=== PATIENT | male | born 1980 | race Caucasian/White ===

== ENCOUNTER 2019-09-19 15:18 | Emergency (ER) | payer OTHER ==
[~2019-09-19] VITALS: Ht 167.6 cm; Wt 88.5 kg
[~2019-09-19 15:18] MED LIST: ACET-8386 PO; ALBU-136 IH; DIAZ5TAB7 PO; PRON INH
--- NOTE | 2019-09-19 16:03 | NUR ---
TO LOBBY A/W BED AMBULATORY
[2019-09-19 16:22] VITALS: BP 137/90
--- NOTE | 2019-09-19 16:52 | NUR ---
Patient ambulated to bed 1. RN evaluating patient at bedside.
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
[2019-09-19] MEDS ORDERED: metroNIDAZOLE 500 MG TAB PO ONE (17:20)
[2019-09-19] MEDS ORDERED: AZITHROMYCIN 250 MG TAB PO ONE (17:20)
[2019-09-19] MEDS ORDERED: GENTAMICIN 80 MG/2 ML VIAL IM ONE (17:20)
[2019-09-19 18:05] VITALS: BP 137/90
--- NOTE | 2019-09-19 18:05 | NUR ---
Patient discharged with v/s stable. Written and verbal after care instructions given and explained. Patient alert, oriented and verbalized understanding of instructions. with steady gait. All questions addressed prior to discharge. ID band removed. Patient advised to follow up with PMD. Rx of given. Patient educated on indication of medication including possible reaction and side effects. Opportunity to ask questions provided and answered.
[2019-09-21 06:07] LABS: CHLAMYDIA TRACHOMATIS AMP DNA Negative (Negative)
== END 2019-09-19 18:05 | disposition home or self-care (01) ==
LOC: MED 15:18
DX: Z11.3 Encounter for screening for infections with a predominantly sexual mode of transmission (principal); N48.89 Other specified disorders of penis; F17.210 Nicotine dependence, cigarettes, uncomplicated; Z79.899 Other long term (current) drug therapy
CPT/HCPCS: 87491; 96372; 99283; J1580; 36415